=== PATIENT | female | born 1955 | race Caucasian/White ===

== ENCOUNTER 2018-03-12 07:23 | Outpatient (CLI) | payer BC | END 2018-03-12 07:24 | disposition home or self-care (01) | LOC: BICULT 07:23 | PROVIDERS: ATTEND Internal Medicine Gastroenterology | DX: K74.60 Unspecified cirrhosis of liver (principal); B18.2 Chronic viral hepatitis C | CPT/HCPCS: 76705 ==

== ENCOUNTER 2018-09-23 08:14 | Outpatient (CLI) | payer BC ==
--- NOTE | 2018-09-23 13:33 | CT ---
CT ABDOMEN WITH IV CONTRAAST: Date: 09/23/18 HISTORY: Cirrhosis, elevated liver enzymes. COMPARISON: MRI abdomen on 11/04/14, as well as CT abdomen on 08/07/14. FINDINGS: There is dependent bibasilar atelectasis. There is slightly nodular peripheral contour of the liver suggesting cirrhosis. Portal veins are santillan nt. However, there are small varices seen within the region of the gastrohepatic ligament, as well as evidence of esophageal varices. Again noted is evidence of prior splenectomy. Atrophic right kidney is again present. The pancreas, bilateral adrenal glands, and left kidney, as well as opacified bowel, demonstrate a no rmal CT appearance. There is mild wall thickening involving the body of the stomach. Stomach is decompressed. While the portal veins are patent, there is filling defect in mid and lower branches of the superior mesenteric vein with linear filling defect extending to the confluence, suggestive of thrombus. Howev er, this may be more remote in origin as opposed to more acute thrombus with recanalization. However, the acuity is difficult to determine based on this exam. IMPRESSION: 1. Evidence of cirrhosis with varices in region of gastrohepatic ligament, as well as esophageal hari ices. 2. Portal veins are patent, but there is suggestion of a filling defect within branches of the super ior mesenteric vein suggesting thrombus. The acuity of the thrombus is difficult to definitely determ ine. There is not adjacent inflammatory stranding. 3. Mucosal thickening involving the antrum of the stomach. Further evaluation with endoscopy is joes mmended. 4. Postsurgical changes related to cholecystectomy and splenectomy. 5. Atrophic right kidney. Above findings discussed with Dr. Juanjo Norton on 09/23/18 at 1351 hours. CODE CR. POS: [facility]
[2018-09-23] MEDS ORDERED: ISOVUE-370 76%-LOCM 1 ML ONE (13:39)
== END 2018-09-23 08:15 | disposition home or self-care (01) ==
LOC: BICCT 08:14
PROVIDERS: ATTEND Internal Medicine Gastroenterology
DX: K74.60 Unspecified cirrhosis of liver (principal); R74.8 Abnormal levels of other serum enzymes; I85.10 Secondary esophageal varices without bleeding; I86.8 Varicose veins of other specified sites; N26.1 Atrophy of kidney (terminal); K31.89 Other diseases of stomach and duodenum; Z90.49 Acquired absence of other specified parts of digestive tract; Z90.81 Acquired absence of spleen
CPT/HCPCS: 74160

== ENCOUNTER 2020-10-06 07:26 | Outpatient (CLI) | payer OTHER ==
--- NOTE | 2020-10-06 08:18 | ULT ---
EXAM: Abdominal ultrasound PROVIDED CLINICAL HISTORY: Cirrhosis COMPARISON: None FINDINGS: Visualized portions of the pancreas, IVC and aorta appear normal. Liver demonstrates no mass or intrahepatic biliary ductal dilatation. Common duct is nondilated. The gallbladder and spleen are not visualized, compatible with provided surgical history of prior cho lecystectomy and splenectomy. Kidneys demonstrate no hydronephrosis or solid mass. IMPRESSION: Unremarkable abdominal ultrasound.
== END 2020-10-06 07:27 | disposition home or self-care (01) ==
LOC: BICULT 07:26
PROVIDERS: ATTEND Internal Medicine
DX: K74.60 Unspecified cirrhosis of liver (principal)
CPT/HCPCS: 93975

== ENCOUNTER 2023-07-04 08:46 | Outpatient (CLI) | payer MEDICARE | END 2023-07-04 08:47 | disposition home or self-care (01) | LOC: ULT 08:46 | PROVIDERS: ATTEND Internal Medicine | DX: K74.60 Unspecified cirrhosis of liver (principal); N27.0 Small kidney, unilateral | CPT/HCPCS: 76700 ==

== ENCOUNTER 2025-07-27 10:29 | Emergency (ER) | payer MEDICARE ==
[2025-07-27 13:37] LABS: CAUTI Indications for Culture Acute Hematuria; Glucose, Urine (Dipstick) Normal (Negative); Leukocyte Negative Leu/uL (Negative); Protein, Urine (Dipstick) Negative (Neg-Trace); RBC/HPF 0-3 HPF (0-3); Specific Gravity, Urine 1.009 (1.002-1.036); WBC/HPF 0-3 HPF (0-3)
[2025-07-27 13:40] LABS: Bacteria/HPF 1+ HPF (None Seen); Urine Culture Reflex No No
== END 2025-07-27 14:24 | disposition left against medical advice (07) ==
LOC: ERS 10:29
DX: S51.801A Unspecified open wound of right forearm, initial encounter (principal); Z53.20 Procedure and treatment not carried out because of patient's decision for unspecified reasons; V49.40XA Driver injured in collision with unspecified motor vehicles in traffic accident, initial encounter
CPT/HCPCS: 71045; 81001; 99284